=== PATIENT | male | born 1965 | race Caucasian/White ===

== ENCOUNTER 2016-10-31 19:50 | Inpatient (IN) | payer BC ==
[~2016-10-31] VITALS: Ht 172.7 cm; Wt 75.0 kg
[2016-10-31 20:01] VITALS: Ht 172.7 cm; Wt 75.0 kg
[2016-10-31] MEDS ORDERED: GLUCAGON 1 MG INJ IM STA ×2 (20:02→20:08)
[2016-10-31] MEDS ORDERED: NITROGLYCERIN (SL) 0.4 MG TAB SL ONE (20:30)
[2016-10-31] MEDS ORDERED: FLUT16SP17 NASAL (21:20)
--- NOTE | 2016-10-31 21:20 | RADRPT ---
PROCEDURE: XR Chest. CLINICAL INDICATION: Pain. Possible foreign body.. TECHNIQUE: PA and lateral chest x-ray. COMPARISON: None. FINDINGS: The cardiomediastinal silhouette is unremarkable. The lungs are clear. No focal opacification is s een. There is no pleural effusion or pneumothorax. The osseous structures are unremarkable. Ther e is no radiopaque foreign body. IMPRESSION: No active disease. RPTAT: HMVK .Michele Dee MD, Date Time Electronically viewed and signed by .Michele Dee MD, on 10/31/2016 21:19 .K/
[2016-10-31] MEDS ORDERED: LEVO137T3 PO (21:21)
[2016-10-31] MEDS ORDERED: FAMO20TA18 PO (21:22)
[2016-10-31] MEDS ORDERED: ERGO500037 PO (21:23)
[2016-10-31] MEDS ORDERED: VARD10TA4 PO (21:24)
[2016-10-31] MEDS ORDERED: META800T PO (21:25)
--- NOTE | 2016-10-31 21:25 | RADRPT ---
PROCEDURE: X-ray soft tissue neck CLINICAL INDICATION: Pain. Swallowed foreign body.. TECHNIQUE: Frontal and lateral x-rays of the soft tissues of the neck are available for review. COMPARISON: None available FINDINGS: On the frontal view there are 2 well-defined hyperdense ovoid structures in the left lateral soft ti ssues of the neck at the level of the C3 and C5 vertebral bodies measuring 2.1 x 0.6 7 meters and 1. 4 x 0.5 cm respectively. Densities are lateral to the location of the oropharynx or esophagus. Den sities project anterior to the C3 and C5 vertebral bodies on the lateral view. The epiglottis is no rmal. The airway is clear. Prevertebral soft tissues unremarkable. There is no other radiopaque fo reign body. The osseous structures are unremarkable. IMPRESSION: 1. Well-defined discrete hyperdensities in the left lateral neck. Appearance is nonspecific and ma y represent calcified lymph nodes or other foreign bodies, although too lateral to be within the donya pharynx or esophagus. Correlation with CT neck may be helpful if clinically indicated. 2. No other suspicious radiopaque foreign body. RPTAT: HMVK .Michele Dee MD, Date Time Electronically viewed and signed by .Michele Dee MD, on 10/31/2016 21:25 .K/
[2016-10-31] MEDS ORDERED: VIT1TABL46 PO (21:26)
[2016-10-31] MEDS ORDERED: CIPR500T4 PO (21:26)
[2016-10-31] MEDS ORDERED: ENAL5TAB PO (21:31)
[2016-10-31] MEDS ORDERED: SOD CHLORIDE 0.9% 1,000 ML IV STA (21:46)
[2016-10-31] MEDS ORDERED: RABE20TA5 PO (21:56)
[2016-10-31] MEDS ORDERED: SOD CHLORIDE 0.9% 1,000 ML IV SCH (21:56)
[2016-10-31] MEDS ORDERED: LORAZEPAM 2 MG INJ IV ONE (22:00)
[2016-10-31] MEDS ORDERED: ACETAMINOPHEN 325 MG TAB PO PRN (22:00)
[2016-10-31] MEDS ORDERED: ONDANSETRON 4 MG INJ IV PRN ×2 (22:00→22:30)
--- NOTE | 2016-10-31 22:01 | ERA ---
ER Documentation Chief Complaint Date/Time DATE: 10/31/16 TIME: 21:57 Chief Complaint pt swallowed a shrimp and feels it's obstructed HPI This 51-year-old male presents to the emergency room for evaluation of possible food stuck in his throat. The patient states that he swallowed a trip and he feels that it is obstructing his "food tube". The patient states that he has been vomiting, has not been able to swallow his spit I since this occurred 20 minutes prior to arrival. ROS All systems reviewed and are negative except as per history of present illness. Medications Home Meds Reported Medications Rabeprazole Sodium* (Aciphex*) 20 Mg Tablet.dr, 20 MG PO BID, #30 TAB 10/31/16 Enalapril Maleate* (Enalapril Maleate*) 5 Mg Tablet, 5 MG PO DAILY, TAB 10/31/16 Ciprofloxacin Hcl* (Ciprofloxacin Hcl*) Unknown Strength Tablet, PO BID, #14 TAB 10/31/16 Vitamin B Complex* (Vitamin B Complex*) 1 Each Tablet, 1 TAB PO DAILY, TAB 10/31/16 Metaxalone* (Metaxalone*) 800 Mg Tablet, 800 MG PO TID, TAB 10/31/16 Vardenafil Hcl (Levitra) 10 Mg Tablet, 20 MG PO DAILY Y for PRN, TAB 10/31/16 Ergocalciferol (Vitamin D2) (VITAMIN D2) 50,000 Unit Capsule, 55423 UNIT PO Q OTHER WEEK, CAP 10/31/16 Famotidine* (Famotidine*) 20 Mg Tablet, 20 MG PO BID, #60 TAB 10/31/16 Levothyroxine Sodium* (Levothyroxine Sodium*) 137 Mcg Tablet, 137 MCG PO BEFORE BREAKFAST, #30 TAB 10/31/16 Fluticasone Propionate* (Fluticasone Propionate* Nasal) 50 Mcg/Benton - 16 Gm Benton.susp, 1 SPRAY NASAL BID, #1 BOTTLE TO EACH NOSTRIL 10/31/16 Allergies Allergies: Coded Allergies: No Known Allergy (Unverified , 10/31/16) PMhx/Soc History of Surgery: Yes (cardiac ablation, aortic valve repair) Anesthesia Reaction: No Hx Neurological Disorder: No Hx Respiratory Disorders: No Hx Cardiac Disorders: No Hx Psychiatric Problems: No Hx Miscellaneous Medical Probl: No Hx Alcohol Use: Yes (occasionally) Hx Substance Use: No Hx Tobacco Use: No Smoking Status: Never smoker Physical Exam Vitals Vital Signs Date Time Temp Pulse Resp B/P Pulse Ox O2 Delivery O2 Flow Rate FiO2 10/31/16 20:21 105 17 151/84 100 Room Air 10/31/16 20:01 98.0 107 20 146/97 100 Physical Exam Const: Patient appears to be mildly uncomfortable, mild posturing, unable to tolerate secretions Head: Atraumatic Eyes: Normal Conjunctiva ENT: Normal External Ears, Nose and Mouth. Neck: Full range of motion..~ No meningismus. Resp: Clear to auscultation bilaterally Cardio: Tachycardic, no murmurs Abd: Soft, non tender, non distended. Normal bowel sounds Skin: No petechiae or rashes Back: No midline or flank tenderness Ext: No cyanosis, or edema Neur: Awake and alert Psych: Normal Mood and Affect Results 24 hrs Current Medications Medications (Trade) Dose Ordered Sig/Gwen Route PRN Reason Start Time Stop Time Status Last Admin Dose Admin Glucagon (Glucagen) 2 mg ONCE STAT IM 10/31/16 20:02 10/31/16 20:09 DC Nitroglycerin (Nitroglycerin (Sl Tab) 0.4 Mg) 1 tab ONCE ONCE SL 10/31/16 20:30 10/31/16 20:31 DC 10/31/16 20:30 Glucagon 2 mg 2 mg ONCE STAT IM 10/31/16 20:08 10/31/16 20:10 DC 10/31/16 20:29 Sodium Chloride (NS) 1,000 ml @ 1,000 mls/hr Q1H STAT IV 10/31/16 21:46 10/31/16 22:45 Lorazepam (Ativan) 1 mg ONCE ONCE IV 10/31/16 22:00 10/31/16 22:01 Procedures/MDM Chest X-ray 1V Interpreted by me: Soft Tissue: No acute abnormalities Bones: No acute abnormalities Mediastinum/Cardiac Silhouette/Lungs: [No acute abnormalities] X-ray Soft Tissue Neck 2V Interpreted by me: Bones: [No fracture] Joints: [No dislocation] Foreign body: [Possible foreign body EKG: Rate/Rhythm: Sinus tachycardia QRS, ST, T-waves: [No changes consistent w/ acute ischemia] Impression: [No evidence of ischemia or arrhythmia] This 51-year-old male presents to the emergency room for evaluation of possible esophageal foreign body. The patient does state that he was eating shrimp and felt like he had a piece of shrimp stuck in his esophagus. When I evaluated this patient he was not able to tolerate secretions. He was vomiting. I did give the patient glucagon. I also had the patient try to drink soda here in the emergency room, and he was unable to tolerate any p.o. challenge despite glucagon and soda. The patient appears to be in mild distress, and I have contacted our director of therapy services, Dr. hardin. He states that he will take the patient to the operating room tonight for endoscopy and possible removal of foreign body. This patient is mildly anxious, he is tachycardic, EKG is nonischemic and he was placed in for admission at this time under the care of her panel physician, Dr. Shetty Departure Diagnosis: Primary Impression: Esophageal foreign body Additional Impression: Impacted esophageal foreign body Condition: Stable RADHA SCHAFFER DO Oct 31, 2016 22:01
--- NOTE | 2016-10-31 22:12 | HP ---
Date/Time of Note Date/Time of Note DATE: 10/31/16 TIME: 22:12 Assessment/Plan VTE Prophylaxis VTE Prophylaxis Intervention: other (None Needed) Lines/Catheters IV Catheter Type (from Nrs): Saline Lock Assessment/Plan Assessment/Plan 1) Foreign Body in Throat - Patient was admitted and taken into the GI [facility] to evaluate and treat the situation. He tolerated the procedure well. - Plan for DC Home in AM. HPI/ROS Admit Date/Time Admit Date/Time Hx of Present Illness This 51-year-old male presented to the emergency room for evaluation of having a shrimp stuck in his throat. By the time I saw him, he had already been to the GI Lab with Dr. Dong and the offending shrimp was advanced into the stomach with the scope. Patient now has no complaints, other than his throat is a little sore. He does not llike to take medications but something like Cepacol Lozenges sounds good to him. Per Dr. Dong, who called me after the procedure, he can go home later today. ED course per ER Physician. This 51-year-old male presents to the emergency room for evaluation of possible esophageal foreign body. The patient does state that he was eating shrimp and felt like he had a piece of shrimp stuck in his esophagus. When I evaluated this patient he was not able to tolerate secretions. He was vomiting. I did give the patient glucagon. I also had the patient try to drink soda here in the emergency room, and he was unable to tolerate any p.o. challenge despite glucagon and soda. The patient appears to be in mild distress, and I have contacted our hogshead stripper, Dr. Dong. He states that he will take the patient to the operating room tonight for endoscopy and possible removal of foreign body. This patient is mildly anxious, he is tachycardic, EKG is nonischemic and he was placed in for admission at this time under the care of her panel physician, Dr. Diogenes ESPINOZA Constitutional: No chills, No fatigue, No febrile Eyes: No no complaints ENT: dysphagia, other (Drooling/Cannot swallow spit), sore throat Respiratory: No cough, No shortness of breath, No wheezing Cardiovascular: no complaints Gastrointestinal: no complaints Genitourinary: no complaints Musculoskeletal: no complaints Skin: no complaints Neurologic: no complaints PMH/Family/Social Past Surgical History cardiac ablation, aortic valve repair Social History Alcohol Use: occasionally Smoking Status: Never smoker Exam/Review of Systems Vital Signs Vitals Vital Signs Date Time Temp Pulse Resp B/P Pulse Ox O2 Delivery O2 Flow Rate FiO2 10/31/16 22:00 118 17 137/89 100 Room Air 10/31/16 20:01 98.0 Exam Exam Const: Patient is comfortable, in NAD after the GI procedure is performed. See ER Note for his condition upon arrival. Head: Normocephalic/Atraumatic Eyes: Sclera clear, no jaundice. ENT: Normal External Ears, Nose and Mouth. Neck: Supple. No lymphadenopathy. Resp: Clear to auscultation bilaterally. Normal respiratory effort. Cardio: Regular rhythm. Normal rate.no murmurs Abd: Soft, non tender, non distended. Normal bowel sounds Skin: Normal moisture and temperature. No visible rash. Ext: No cyanosis, or edema Neur: Sleeping. Rouses easily. Awake and alert Psych: Normal Mood and Affect. Good eye contact. Medications Medications Current Medications Sodium Chloride (NS) 1,000 ml @ 80 mls/hr [id number] IV ; Start 10/31/16 at 21:56; Stop 11/01/16 at 10:25 ANTHONY JARRETT DO Oct 31, 2016 22:12
[2016-10-31] MEDS ORDERED: METOCLOPRAMIDE 10 MG INJ IV PRN (22:30)
[2016-10-31] MEDS ORDERED: NACL 0.9% 3 ML SYG IV SCH (22:30)
[2016-10-31 22:46] LABS: ADD SCAN DIFF NO
[2016-10-31 22:50] LABS: BASOPHIL # 0.1 10^3/ul (0.0-0.1); BASOPHILS % 0.5 % (0.0-2.0); EOSINOPHILS # 0.6 10^3/ul (0.0-0.5); EOSINOPHILS % 2.8 % (0.0-7.0); HEMATOCRIT 42.2 % (42.0-52.0); HEMOGLOBIN 14.1 g/dl (14.0-18.0); LYMPHOCYTES # 1.8 10^3/ul (0.8-2.9); LYMPHOCYTES % 9.1 % (15.0-51.0); MEAN CORPUSCULAR HEMOGLOBIN 29.3 pg (29.0-33.0); MEAN CORPUSCULAR HGB CONC 33.4 g/dl (32.0-37.0); MEAN CORPUSCULAR VOLUME 87.7 fl (82.0-101.0); MEAN PLATELET VOLUME 12.3 fl (7.4-10.4); MONOCYTE # 1.3 10^3/ul (0.3-0.9); MONOCYTES % 6.7 % (0.0-11.0); NEUTROPHIL # 15.5 10^3/ul (1.6-7.5); NEUTROPHILS % 80.3 % (39.0-77.0); PLATELET COUNT 263 10^3/UL (140-415); RED BLOOD COUNT 4.81 10^6/ul (4.70-6.10); RED CELL DISTRIBUTION WIDTH 14.1 % (11.5-14.5); WHITE BLOOD COUNT 19.3 10^3/ul (4.8-10.8)
[2016-10-31 23:03] LABS: ALBUMIN 4.8 g/dl (3.3-4.9)
[2016-10-31 23:06] LABS: ALBUMIN/GLOBULIN RATIO 1.45; BILIRUBIN,INDIRECT 0.1 mg/dl (0-1.1); BILIRUBIN,TOTAL 0.1 mg/dl (0.2-1.3); TOTAL PROTEIN 8.1 g/dl (6.1-8.1)
[2016-10-31 23:07] LABS: CREATININE 0.8 mg/dl (0.61-1.24); POTASSIUM 3.9 mmol/L (3.5-5.1)
[2016-10-31] MEDS ORDERED: ROCURONIUM 50 MG INJ ONE (23:18)
[2016-10-31] MEDS ORDERED: FENTAnyl 50 MCG/ML VIAL ONE (23:19)
[2016-10-31] MEDS ORDERED: SUCCINYLCHOLINE CHLORIDE 100 MG/5 ML SYG IV ONE (23:19)
[2016-10-31] MEDS ORDERED: PROPOFOL 20 ML ONE (23:19)
--- NOTE | 2016-10-31 23:19 | CONS ---
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 Procedure was explained to the patient including risks, benefits and alternatives. Agreeable to proceed Consultation Date/Type/Reason Admit Date/Time Date of Consultation: Oct 31, 2016 Reason for Consultation * Foreign body in the esophagus Hx of Present Illness 51-year-old male with previous history of Hodgkin's lymphoma at age 18, treated with radiation chemotherapy with no recurrence. The patient presented to the emergency room after ingestion of what he describes as a shrimp Fajita that resulted in lodging and impaction of presumably a shrimp in the esophagus. The patient has not been able to swallow water or his own saliva since the occurrence. He has tried vomiting on multiple occasions with no dislodgment of the presumed impacted material. He complains of significant discomfort in the retrosternal area and has been retching repeatedly. At this point the patient will be evaluated with endoscopy to attempt removal or dislodgment of the foreign body under general anesthesia. The procedure was explained in detail to the patient including risks, benefits and alternatives. He is agreeable to proceed. Constitutional: improved, no complaints Eyes: no complaints ENT: no complaints Respiratory: no complaints Cardiovascular: no complaints Gastrointestinal: nausea, other (Unable to swallow), pain (Retrosternal) Genitourinary: no complaints Musculoskeletal: no complaints Skin: no complaints Neurologic: no complaints Endocrine: no complaints Lymphatic: no complaints Psychological: nl mood/affect, no complaints Immunologic: no complaints Past Medical History * History of GERD/last EGD more than 3 years prior * Hodgkin's lymphoma treated at age 18, no recurrence * Bicuspid aortic valve * Hypertension * Thyroid nodules * 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 Past Surgical History * Splenectomy Family History Significant Family History: no pertinent family hx Social History Alcohol Use: none Smoking Status: Never smoker Drug Use: none Exam/Review of Systems Vital Signs Vitals Vital Signs Date Time Temp Pulse Resp B/P Pulse Ox O2 Delivery O2 Flow Rate FiO2 10/31/16 22:00 118 17 137/89 100 Room Air 10/31/16 20:01 98.0 Exam Constitutional: alert, distress (Moderate), oriented, well developed Psych: anxiety Head: atraumatic, normocephalic Eyes: EOMI, PERRL, nl conjunctiva, nl lids, nl sclera ENMT: nl external ears & nose, nl lips & teeth, nl nasal mucosa & septum Neck: non-tender, supple Respiratory: clear to auscultation, normal air movement Cardiovascular: nl pulses, regular rate and rhythm Gastrointestinal: nl liver, spleen, non-tender, soft Musculoskeletal: nl extremities to inspection Extremities: normal pulses Neurological: LINUX ADMINISTRATOR II-XII intact, nl mental status, nl speech, nl strength Skin: nl turgor, No rash or lesions Lymph: nl lymph nodes Results Result Diagram: 10/31/162203 Results 24 hrs Laboratory Tests Test 10/31/16 22:04 Basophils # 0.1 Basophils % 0.5 Eosinophils # 0.6 H Eosinophils % 2.8 Hematocrit 42.2 Hemoglobin 14.1 Lymphocytes # 1.8 Lymphocytes % 9.1 L Mean Corpuscular Hemoglobin 29.3 Mean Corpuscular Hemoglobin Concent 33.4 Mean Corpuscular Volume 87.7 Mean Platelet Volume 12.3 H Monocytes # 1.3 H Monocytes % 6.7 Neutrophils # 15.5 H Neutrophils % 80.3 H Nucleated Red Blood Cells # 0.0 Nucleated Red Blood Cells % 0.0 Platelet Count 263 Red Blood Count 4.81 Red Cell Distribution Width 14.1 White Blood Count 19.3 H Medications Medications Current Medications Sodium Chloride (NS) 1,000 ml @ 80 mls/hr [id number] IV ; Start 10/31/16 at 21:56; Stop 11/01/16 at 10:25 Ondansetron HCl (Zofran Inj) 4 mg Q6H PRN IV NAUSEA AND/OR VOMITING; Start 10/31 at 22:30 Metoclopramide HCl (Reglan) 10 mg Q6H PRN IV NAUSEA AND/OR VOMITING; Start 10/31 at 22:30 Famotidine (Pepcid Iv) 20 mg Q12 IV ; Start 11/01/16 at 09:00 ANABELL CARMICHAEL MD Oct 31, 2016 23:11
[2016-10-31 23:46] VITALS: PULSE 102; RESP 24
[2016-10-31 23:47] VITALS: BP 108/57; PULSE 104; RESP 26
[2016-10-31 23:55] VITALS: BP 108/57; PULSE 97; RESP 18
[2016-11-01] VITALS (8 sets, daily range): BP systolic 108–121; BP diastolic 59–73; PULSE 75–93; RESP 18–20
[2016-11-01] MEDS ORDERED: ZOLPIDEM 5 MG TAB PO PRN
[2016-11-01] MEDS ORDERED: CEPASTAT LOZENGE MT PRN (03:30)
[2016-11-01] MEDS ORDERED: PANTOPRAZOLE 40 MG INJ IV SCH (06:00)
--- NOTE | 2016-11-01 07:50 | GILP ---
DATE OF PROCEDURE: PROCEDURE: Esophagogastroduodenoscopy with foreign body removal (emergency). PREMEDICATION: General anesthesia by anesthesiologist. BRIEF HISTORY AND INDICATIONS: The patient is a pleasant 51-year-old man who was eating shrimp crys flores and apparently swallowed a whole shrimp without chewing and immediately after that developed sign ificant dysphagia what appears to be complete obstruction of the esophagus, inability to manage secr etions. Attempted inducing vomiting with no success. SURGEON: Anablel Dong MD. INSTRUMENT USED: Olympus panendoscope. TECHNIQUE: After informed consent, with the patient/relatives understanding the procedure, its indic ations, potential risks and complications, including but not limited to: allergic reaction, bleeding , perforation or infection, and after all pertinent questions were answered to the patients satisfac tion, the patient/relatives signed witnessed informed consent. Following this, premedication was administered slowly IV push under careful cardiovascular and respi ratory monitoring with pulse oximetry, automatic blood pressure and lunchroom monitor. Once the sedative effect was achieved the patient was place in the left lateral decubitus, the panen doscope was introduced and advanced under visual control. Careful examination of the upper gastrointestinal tract, both on insertion as well as withdrawal of the instrument disclosed the following findings: ESOPHAGUS: The proximal esophagus is remarkable for the presence of a foreign body which, as descri bed, appeared to be a shrimp. The foreign body was easily dislodged and pushed down the esophagus i nto the stomach. No additional abnormalities are noted with the exception of some traumatic esophag itis in the proximal esophagus where the foreign body had been lodged. Limited examination of the r emainder of the upper gastrointestinal tract showed no significant abnormalities. Some food is present in the stomach, so we limited distention and irrigation to avoid risk of aspira tion. The instrument was withdrawn. The patient tolerated the procedure well. IMPRESSION: 1. Foreign body lodged in the proximal esophagus which was dislodged and transferred to the stomach . 2. Moderate traumatic esophagitis, proximal esophagus. 3. Food in the stomach precludes optimal examination. PLAN: The patient will be observed. PPIs will be prescribed. The patient should be evaluated elec tively with endoscopy in the next few weeks to assess the need for any therapeutic intervention such as dilatation. This does not appear to be the case at this time, but again, the examination is medina ited. Dictated By: ANABELL DONG MS/NTS Conf#: [id number] DID#: [id number]
[2016-11-01] MEDS ORDERED: FAMOTIDINE 20 MG INJ IV SCH (09:00)
[2016-11-01] MEDS ORDERED: CIPROFLOXACIN 500 MG TAB PO ONE (10:00)
--- NOTE | 2016-11-01 11:44 | PDOCDIS ---
Discharge Instructions DIAGNOSIS Discharge Diagnosis: Foreign body in the esophagus. CONDITION Patient Condition: Stable HOME CARE INSTRUCTIONS: Diet Instructions: Regular OTHER ORDERS: Other Orders: 1. Take a regular diet as tolerated. 2. Resume home medications. Start taking Protonix. 3. Resume activities as tolerated. 4. Follow-up with your primary care physician and signals officer as scheduled. 5. Please go to the nearest emergency room if you have significant difficulty in swallowing, if you have any gastrointestinal bleeding, or any other unusual signs/symptoms. ORLY CLIFTON NP Nov 01, 2016 11:44
[2016-11-01] MEDS ORDERED: PANT40TA3 PO (11:45)
--- NOTE | 2016-11-01 13:10 | DS ---
DATE OF ADMISSION: 11/01/2016 DATE OF DISCHARGE: 11/01/2016 FINAL DIAGNOSES: 1. Foreign body in the esophagus, status post removal. 2. History of Hodgkin's disease, now in remission. 3. History of splenectomy. 4. Bicuspid aortic valve, stable. 5. Hypothyroidism. CONSULTATIONS: Dr. Savage Dong, gastroenterology. HOSPITAL COURSE: This is a 51-year-old male with past medical history of Hodgkin's disease, hypothyroidism, and bicuspid aortic valve, who came to the emergency room because of a shrimp stuck in his throat. The patient swallowed a shrimp earlier before admission, and the patient felt like it was obstructing his esophagus and throat. The patient had trouble swallowing after this event happened. The patient was evaluated in the emergency room, and the patient was emergently taken to the GI lab. The patient underwent an emergent esophagogastroduodenoscopy. The patient had a foreign body lodged in the proximal esophagus which was dislodged and transferred to the stomach. The esophagogastroduodenoscopy also revealed a traumatic esophagitis in the proximal esophagus. Post procedure, the patient was transferred to telemetry floor. The patient was started on a regular diet. The patient was able to tolerate a regular consistency diet. The patient was maintained on proton pump inhibitors. The patient was cleared by gastroenterology to be discharged home. The patient was maintained on medications for his chronic conditions including a bicuspid aortic valve. The patient was also noticed to have leukocytosis. This could be most probably reactive in origin. The patient was also being treated for a urinary tract infection as outpatient. Hence, the patient's antibiotics were continued during this hospitalization. The patient remained afebrile throughout the hospital course. DISCHARGE DISPOSITION AND PLAN: The patient will be discharged home today. The patient was instructed to take a regular diet as tolerated. The patient was instructed to resume his home medications. He was instructed to start taking Protonix. He was instructed to resume activities as tolerated. He was instructed to follow up with his primary care physician and field reporter as scheduled. He was instructed to go to the nearest emergency room if he has any significant difficulty in swallowing, if he has any gastrointestinal bleeding, or any other unusual signs/symptoms. The patient verbalized understanding of his discharge instructions. CONDITION AT DISCHARGE: Stable. DISCHARGE MEDICATIONS: 1. Protonix 40 mg p.o. daily. 2. Ciprofloxacin 500 mg p.o. b.i.d. 3. Enalapril 5 mg p.o. daily. 4. Ergocalciferol 50,000 units p.o. every other week. 5. Synthroid 137 mcg before breakfast. 6. Vardenafil 20 mg p.o. daily. 7. Metaxalone 800 mg p.o. daily. 8. Vitamin B complex 1 tablet p.o. daily. PERTINENT LABORATORIES AND DIAGNOSTIC DATA: 1. Esophagogastroduodenoscopy. Foreign body lodged in the proximal esophagus which was dislodged and transferred to the stomach. Moderate traumatic esophagitis. 2. Soft tissue neck x-ray. Well-defined discreet hypodensities in the left lateral neck. Appearance is nonspecific and may represent calcified lymph nodes or other foreign bodies, although too lateral to be within the oropharynx or esophagus. No other suspicious radiopaque foreign body. 3. Chest x-ray. No active disease. 4. CBC: WBC 19.3, hemoglobin 14.1, hematocrit 42.2, platelet count 263. 5. BMP: Sodium 144, potassium 3.9, chloride 100, carbon dioxide 20, anion gap 20, BUN 15, creatinine 0.80, glucose 103, calcium 10.0. AST 28, ALT 26, alkaline phosphatase 71, albumin 4.8. At this time, I would like to thank Dr. Dong for seeing the patient, doing the necessary procedures, and providing clinical recommendations. The case and management of this patient was fully discussed with Dr. Tovar. Approximately 35 minutes was spent on coordinating the discharge on this patient. ORLY TOVAR MD, AM/JUAREZ Conf#: [id number] DID#: [id number] MTDD
== END 2016-11-01 12:55 | disposition home or self-care (01) | DRG 394 ==
LOC: EDSEX 19:50 → E/R 19:50 → SDS 22:33 → TEL 11-01 00:44
PROVIDERS: ADMIT Family Medicine; ATTEND Family Medicine
PROC: 0DC58ZZ Extirpation of Matter from Esophagus, Via Natural or Artificial Opening Endoscopic (ICD-10-PCS; principal; 2016-10-31 23:00)
DX: T18.128A Food in esophagus causing other injury, initial encounter (principal); Q23.1 Congenital insufficiency of aortic valve; I10 Essential (primary) hypertension; K20.9 Esophagitis, unspecified; Z85.71 Personal history of Hodgkin lymphoma; E03.9 Hypothyroidism, unspecified; X58.XXXA Exposure to other specified factors, initial encounter
CPT/HCPCS: 36415; 70360; 71020; 80053; 85025; 93005; 96372; 96374; 96375; C9113; J0330; J2060; J2405; J3010; J7030